=== PATIENT | male | born 1980 | race Caucasian/White ===

== ENCOUNTER 2016-05-02 08:04 | Observation (INO) | payer BC ==
--- NOTE | 2016-05-02 09:24 | EDPHY ---
General - History Smoking Status: Former smoker Narrative: CHIEF COMPLAINT: numbness, tingling HISTORY OF PRESENT ILLNESS: patient returns from [place] on Friday and awoke yesterday morning with numbness from the nipple line down. Says that he had numbness and tingling all the way down to his toes. Symptoms were present throughout the day yesterday without change. No weakness. No back pain, fever , chills. No cough or signs of illness. Said he woke this morning at 5:00 a.m. with symptoms now involving the distal forearms and inside of both hands. No involvement of the backs of the hands of the palms of the hands. Still has no weakness of any kind. He has no incontinence. He has no difficulty urinating. He has no difficulty ambulating. No recent trauma. No use of IV drugs. No other associated complaints or modifying factors. REVIEW OF SYSTEMS: Ten systems reviewed and are negative unless otherwise noted in the HPI PERTINENT MEDICAL HISTORY: None EXAMINATION General Appearance: Alert, no distress Head: normocephalic, atraumatic Eyes: Pupils equal and round, no conjunctival pallor or injection ENT, Mouth: Mucous membranes moist. Uvula midline. No erythema or edema. Neck: Normal inspection, supple, non-tender . No meningismus. Painless range of motion all planes. Respiratory: Lungs are clear to auscultation . No wheezing, rhonchi or crackles. Cardiovascular: Regular rate and rhythm . No murmur. Pulses intact distally. Gastrointestinal: Abdomen is soft and nontender Back: non-tender, no bony abnormalities Neurological: A&Ox4 . Cranial nerves 2-12 grossly intact. Strength is 5/5 in all 4 limbs. No pronator drift. Normal finger to nose. Normal heel-montanez. No dysmetria noted. Sensation is apparently intact in all limbs with symmetry. Normal hot coal discerned. Normal proprioception. Skin: Warm and dry, no rash Extremities: Nontender, no pedal edema Psychiatric: Mood and affect normal DIFFERENTIAL DIAGNOSES: Including but not limited to Anesthesia, paresthesia, electrolyte disturbance, Guillain-Stowell, CMV, epidural abscess, spinal cord mass, cauda equina MDM: 9:25 a.m. reports of paresthesia anesthesia. The initial report was from the T4 dermatome and down circumferentially and bilaterally. He also noted this morning spread to the medial aspects of both hands. No involvement of the dorsum of the hands or arms. No involvement of the volar aspect. Neuro exam is normal by my interpretation. He says that he feels pressure in the legs and does not feel normal to him during my palpation. He has got 2 point sensation, normal proprioception, normal hot and sensation. No trauma. No fever. No back pain. No midline tenderness to palpation. Vital signs are within normal limits. Routine laboratory studies have been ordered to verify electrolyte status. I will consult Neurology for further help with the case. 9:44 a.m. I have discussed the case with Dr. Gaines, neurologist. Given the history and examination findings I discussed with him he recommends that we obtain MRI of both the cervical and thoracic spines both with and without contrast. He suggests the possibility of transverse myelitis among others. He says that he will come see the patient after the MRIs. 12:50 p.m. I have re-evaluated the patient several times. Most recently just now his return from MRI. He has no new complaints. Laboratory studies are within normal limits. His vital signs remained stable. He remains neuro intact. Page Dr. Gaines for him to personally review the MRI. No interpretation from the radiologist at this time. 1:20 p.m. notified by radiologist Dr. Pope of MRI results. He notes multifocal areas of edema and demyelination of the cervical and thoracic spinal cord. There are likely medulla masses. Also notes a large disc herniation at T7-T8 it is affecting the spinal cord. I will contact Dr. Gaines and Neurosurgery. 1:30 p.m. I discussed the case with Dr. Harkins with Neurosurgery for the T7-T8 herniation. He will provide consultation. I discussed the case with the hospitalist, and he will be admitted to Dr. Delmy Snow for an inpatient care. I discussed the case with Dr. Gaines. he recommends 1 g of Solu-Medrol IV , and he will provide consultation. He says he will obtain MRI of the brain later tonight or 1st thing in the morning and he will obtain the lumbar puncture studies. I discussed this with the patient he is agreeable to admission for further workup and care. He has been admitted in stable condition. SUPERVISION: Patient was evaluated in conjunction with the supervising physician. Please see their note for details. Dr. Adames (Jin Escalante) The patient was evaluated and managed by the physician's preschool assistant teacher. My cosignature indicates that I reviewed the chart and I agree with the findings and plan of care as documented. I am the secondary supervising physician. ( Corrine Adames) - Objective Vital Signs: Initial Vital Signs Temperature (C) 36.9 C 05/02/16 08:07 Heart Rate 103 H 05/02/16 08:07 Respiratory Rate 16 05/02/16 08:07 Blood Pressure 147/98 H 05/02/16 08:07 O2 Sat (%) 95 05/02/16 08:07 O2 Delivery Mode Room Air Allergies/Adverse Reactions: No Known Allergies Allergy (Unverified 05/02/16 08:11) Home Medications: Medication Instructions Recorded NK [No Known Home Meds] 05/02/16 Laboratory Results: Laboratory Results 05/02/16 08:30 05/02/16 08:30 05/02/16 05/02/16 08:30 08:30 WBC 5.36 10^3/uL 10^3/uL (3.80-9.50) RBC 5.05 10^6/uL 10^6/uL (4.40-6.38) Hgb 15.7 g/dL g/dL (13.7-17.5) Hct 44.8 % % (40.0-51.0) MCV 88.7 fL fL (81.5-99.8) MCH 31.1 pg pg (27.9-34.1) MCHC 35.0 g/dL g/dL (32.4-36.7) RDW 12.2 % % (11.5-15.2) Plt Count 232 10^3/uL 10^3/uL (150-400) MPV 10.5 fL fL (8.7-11.7) Neut % (Auto) 55.3 % % (39.3-74.2) Lymph % (Auto) 34.0 % % (15.0-45.0) [place] % (Auto) 8.8 % % (4.5-13.0) Eos % (Auto) 0.9 % % (0.6-7.6) Baso % (Auto) 0.6 % % (0.3-1.7) Nucleat RBC Rel Count 0.0 % % (0.0-0.2) Absolute Neuts (auto) 2.97 10^3/uL 10^3/uL (1.70-6.50) Absolute Lymphs (auto) 1.82 10^3/uL 10^3/uL (1.00-3.00) Absolute Monos (auto) 0.47 10^3/uL 10^3/uL (0.30-0.80) Absolute Eos (auto) 0.05 10^3/uL 10^3/uL (0.03-0.40) Absolute Basos (auto) 0.03 10^3/uL 10^3/uL (0.02-0.10) Absolute Nucleated RBC 0.00 10^3/uL 10^3/uL (0-0.01) Immature Gran % 0.4 % % (0.0-1.1) Immature Gran # 0.02 10^3/uL 10^3/uL (0.00-0.10) Sodium 139 mEq/L mEq/L (134-144) Potassium 4.3 mEq/L mEq/L (3.5-5.2) Chloride 108 mEq/L mEq/L (97-110) Carbon Dioxide 23 mEq/l mEq/l (22-31) Anion Gap 8 mEq/L mEq/L (8-16) BUN 14 mg/dL mg/dL (7-23) Creatinine 1.0 mg/dL mg/dL (0.7-1.3) Estimated GFR > 60 Glucose 96 mg/dL mg/dL (70-100) Calcium 9.5 mg/dL mg/dL (8.5-10.4) Phosphorus 2.6 mg/dL mg/dL (2.5-4.5) Magnesium 2.2 mg/dL mg/dL (1.6-2.3) Total Bilirubin 1.4 mg/dL mg/dL (0.1-1.4) Conjugated Bilirubin 0.4 mg/dL mg/dL (0.0-0.5) Unconjugated Bilirubin 1.0 mg/dL mg/dL (0.0-1.1) AST 44 IU/L IU/L (17-59) ALT 62 IU/L IU/L (21-72) Alkaline Phosphatase 63 IU/L IU/L (38-126) CK-MB (CK-2) Fraction 0.31 ng/mL ng/mL (0-3.19) Total Protein 7.6 g/dL g/dL (6.3-8.2) Albumin 4.7 g/dL g/dL (3.5-5.0) Medications Given: Discontinued Medications Methylprednisolone Sodium Succinate 1 gm/ Sodium Chloride 108 mls @ 108 mls/hr IV EDNOW ONE Stop: 05/02/16 14:30 Last Admin: 05/02/16 14:23 Dose: 108 mls Departure - Departure Disposition: [facility] Inpatient Acute Clinical Impression: Paresthesia, 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
[2016-05-02 09:29] LABS: % IMMATURE GRANULYOCYTES 0.4 % (0.0-1.1); ABSOLUTE IMMATURE GRANULOCYTES 0.02 10^3/uL (0.00-0.10); ADD DIFF? NO; ADD MORPH? NO; ADD SCAN? NO; ATYPICAL LYMPHOCYTE FLAG 30 (0-99); FRAGMENT RBC FLAG 0 (0-99); HEMATOCRIT 44.8 % (40.0-51.0); HEMOGLOBIN 15.7 g/dL (13.7-17.5); LEFT SHIFT FLG 0 (0-99); LIPEMIA HEMOLYSIS FLAG 90 (0-99); MEAN CELL HEMOGLOBIN 31.1 pg (27.9-34.1); MEAN CELL VOLUME 88.7 fL (81.5-99.8); MEAN PLATELET VOLUME 10.5 fL (8.7-11.7); PLATELET CLUMPS FLAG 0 (0-99); PLATELET COUNT 232 10^3/uL (150-400); RED BLOOD CELL COUNT 5.05 10^6/uL (4.40-6.38); RED CELL DISTRIBUTION WIDTH 12.2 % (11.5-15.2)
[2016-05-02 09:36] LABS: ALANINE AMINOTRANSFERASE 62 IU/L (21-72); ALBUMIN 4.7 g/dL (3.5-5.0); ALKALINE PHOSPHATASE 63 IU/L (38-126); ANION GAP 8 mEq/L (8-16); ASPARTATE AMINOTRANSFERASE 44 IU/L (17-59); BILIRUBIN,TOTAL 1.4 mg/dL (0.1-1.4); BILIRUBIN-CONJUGATED 0.4 mg/dL (0.0-0.5); CALCIUM 9.5 mg/dL (8.5-10.4); CARBON DIOXIDE 23 mEq/l (22-31); CHLORIDE 108 mEq/L (97-110); GLOMERULAR FILTRATION RATE > 60; GLUCOSE 96 mg/dL (70-100); MAGNESIUM 2.2 mg/dL (1.6-2.3); POTASSIUM 4.3 mEq/L (3.5-5.2); SODIUM 139 mEq/L (134-144); TOTAL PROTEIN 7.6 g/dL (6.3-8.2)
[2016-05-02 09:52] LABS: CREATINE KINASE-MB FRACTION 0.31 ng/mL (0-3.19)
[2016-05-02] MEDS ORDERED: GADOBUTROL 10 ML VIAL IVP ONE (10:56)
[2016-05-02] MEDS ORDERED: methylPREDNISolone SOD SUCC 1 GM in NS 100 ML IV ONE (13:31)
[2016-05-02] MEDS ORDERED: ONDANSETRON DISINTEGRATING 4 MG TAB PO PRN (15:04)
[2016-05-02] MEDS ORDERED: ONDANSETRON 4 MG/2 ML VIAL IVP PRN (15:04)
[2016-05-02] MEDS ORDERED: ACETAMINOPHEN 325 MG TAB PO PRN (15:04)
[2016-05-02 15:37] LABS: HEMATOCRIT 43.9 % (40.0-51.0)
[2016-05-02 15:45] LABS: C-REACTIVE PROTEIN 5.3 mg/L (<10.0)
--- NOTE | 2016-05-02 17:24 | GHP ---
[f rep st] HISTORY AND PHYSICAL DATE OF ADMISSION: 05/02/2016 CHIEF COMPLAINT: Numbness, tingling. HISTORY OF PRESENT ILLNESS: The patient is a 36-year-old male with no past medical history, presenting with numbness from the level of his chest to his legs. He just returned from a trip to [place] on Friday, and was in a normal state of health until yesterday when he developed numbness from the nipple line down to his feet. He felt a sensation like he described as when your legs fall asleep. He thought he slept wrong, and went to bed as usual. He awoke today, and symptoms persist and now involve the distal forearms and inside of both his hands. He denied any weakness. No bowel or bladder incontinence. No headache or vision changes. He denies any recent trauma. He states that he was rough- housing and playing in the pool and ocean in [facility], but does not recall feeling any back pain. He was in [place] for 6 days in January. REVIEW OF SYSTEMS: I completed a 10-point review of systems. Negative, except as noted in HPI. PAST MEDICAL HISTORY: None. PAST SURGICAL HISTORY: None. ALLERGIES: No known drug allergies. MEDICATIONS: None. FAMILY HISTORY: Paternal grandmother with cancer. Hypertension in the family. SOCIAL HISTORY: Lives in [place]. Works in IT. Smokes nicotine vaporized, occasional marijuana. Drinks alcohol regularly. PHYSICAL EXAMINATION: VITAL SIGNS: Temperature 36.7, blood pressure 148/97, heart rate 80s to 100s. Respirations 16, 95% on room air. GENERAL: The patient is sitting up in bed, in no acute distress. Mildly anxious. HEENT: PERRLA. EOMI. Oropharynx clear. No lesions or ulcerations. CV: Regular rate and rhythm. No murmurs, gallops, or rubs. LUNGS: Clear to auscultation bilaterally. ABDOMEN: Soft, nontender, nondistended. Positive bowel sounds. : Espinoza, no suprapubic tenderness. MUSCULOSKELETAL: 5/5 upper and lower strength. NEURO: 2 through 12 intact. Normal proprioception, +2 symmetric reflexes at the biceps, brachioradialis, patellar, and ankle. Normal sensation to touch. No pronator drift. SKIN: Sunburned. Skin peeling on right foot. PSYCH: Alert and oriented x3. LABS: WBC 5.3, hemoglobin 15, hematocrit 44, platelets 232. Sodium 139, potassium 4.3, chloride 108, carbon dioxide 23, BUN 14, creatinine 1, glucose 93 , phosphorus 2.6, magnesium 2.2. LFTs within normal. TSH 3.5. Vitamin B12 pending. IESHA pending. HIV and RPR pending. IMAGING: Thoracic spine MRI. The thoracic cord has scattered areas of intrinsic isovolumic T2 hyperintensity dominant in the lower thoracic cord at the level of T12-L1. Disk disease associated with cord compression T7-T8 greater than T5-T6. Cervical spine MRI: Focal abnormal dorsal areas of T2 weighted hyperintensity in the cervical cord, certain lesions behind C3 and C7, and equivocal lesions on the left side of the medulla at levels dorsal C2, right C4, left lateral C5, and upper T1, lateral lower T1, and left lateral T2. ASSESSMENT AND PLAN: 1. Paresthesias at the level of the nipple line down. Concern for demyelinating process such as multiple sclerosis, transverse myelitis. Dr. Harkins with neurosurgery has evaluated patient. Jin Escalante PA-C, in the emergency room, spoke with Dr. Gaines with Neurology. Plan for brain MRI either tonight or tomorrow, following with a lumbar puncture. He was treated with 1 g Solu-Medrol in the emergency room. I will continue this daily. Initial lab evaluation will include TSH, ESR, CRP, HIV, RPR. Appreciate additional recommendations from Neurology. 2. Diet: Regular. 3. Deep vein thrombosis prophylaxis: Ambulatory. DISPOSITION: The patient warrants observation admission given acute paresthesia , warranting further evaluation by Neurology, and lumbar puncture. /[id number]/MODL MTDD
[2016-05-02 23:56] VITALS: RESP 16; O2SAT 95
[2016-05-03 07:51] VITALS: BP 142/95; PULSE 100; TEMP 98.3
[2016-05-03] MEDS ORDERED: methylPREDNISolone SOD SUCC 1 GM in D5W 100 ML IV SCH (09:00)
[2016-05-03] MEDS ORDERED: GADOBUTROL 10 ML VIAL IVP ONE (09:03)
--- NOTE | 2016-05-03 11:13 | GCON ---
[f rep st] CONSULTATION NEUROSURGERY CONSULTATION DATE OF CONSULTATION: 05/02/2016 Patient was seen and evaluated in the [facility] Emergency Department at approximately 2:30 p.m. on 05/02/2016. HISTORY OF PRESENT ILLNESS: The patient is a 36-year-old man who has had roughly 1 day of lower ext remity and to some degree upper extremity numbness. He has this numbness on the chest from roughly a T4 sensory level at the nipples, but also has some numbness in the 5th digits of both hands, which would be consistent with around C8. He just returned from a trip to [place] and had this numbness whe n he awoke yesterday. He has not had any weakness or other signs of myelopathy. He has not any pain or difficulty with his walking. He has not had any fevers or chills or any other obvious illness rec ently and denies any viral symptoms. This is the 1st time any kind of episode like this has ever hap pened to him. He denies any bowel or bladder incontinence and does not have any other complaints tod ay. MRI scans of the cervical and thoracic spine were obtained in the emergency department, and alth ough these scans were performed without contrast, he does appear to have several areas of T2 signal within the cervical spine, suggestive of demyelinating lesions. He was also found to have a small di sk bulge at T7-8 in the thoracic spine, eccentric to the left side with a mild effacement of the ant erior portion of the spinal cord but no compression. There is CSF surrounding the cord completely wi th no cord signal change or nerve compression. He specifically denies any sign of radicular symptoms in the thoracic region. REVIEW OF SYSTEMS: A 10-point review of systems is negative other than described in HPI. PAST MEDICAL HISTORY: None. PAST SURGICAL HISTORY: None. ALLERGIES: No known drug allergies. MEDICATIONS: None. SOCIAL HISTORY: The patient denies any alcohol, tobacco or other drug use other than some social dr inking. FAMILY HISTORY: Negative for any spinal problems. PHYSICAL EXAM: VITAL SIGNS: His temperature is 36.9, heart rate is 103, respiratory rate 16, blood pressure is 147/98, sats are 95% on room air. GENERAL: He is awake, alert, and oriented x3. HEENT: P upils are equal, round, and react to light. Extraocular movements are intact. Face is symmetric. Ton jeronimo is midline. Palate is symmetric. He has full 5/5 strength at the deltoids, biceps, triceps, drying tunnel operator and finger extension on both sides. He does have some mild numbness to the small finger on both liana es, consistent with a C8 distribution. He does not have Tinel's at the wrist or elbow. His deep tend on reflexes are normal, and there is no Villareal's. In the lower extremities, he has 5/5 strength in the hip flexion, extension, knee flexion and extension and plantar and dorsiflexion bilaterally. He has decreased light touch and pain sensation over the entire thorax and lower extremities in a nonde rmatomal pattern below roughly T4 level. The reflexes in his lower extremities are normal, and there is no clonus, and the toes are downgoing. IMAGING REVIEW: See HPI. RESULTS REVIEW: The white count is 5.3, hemoglobin is 15.7, hematocrit 44.8, platelet count is 232, 000. Sodium is 139, potassium 4.3, chloride is 108, BUN 14, creatinine 1.0, glucose is 96. ASSESSMENT/PLAN: The patient is a 36-year-old man who was admitted with trunk and lower extremity n umbness with some numbness also extending into the C8 region of the hands. His MRI scan shows what a ppears to be demyelinating lesions in the cervical spine. Incidentally found was also a disk bulge a t T7-8 with some effacement of the ventral cord but no cord compression or signal change and no sign of nerve compression either. In terms of his thoracic disc for which we were consulted, I think is an incidental finding with no obvious symptoms at this time and no need for any further imaging or t reatment. He certainly is not myelopathic and does not have any thoracic radicular symptoms. He is c urrently in the process of being worked up for demyelinating disease such as multiple sclerosis with Neurology, and will have further scans with contrast of the cervical spine and head done tomorrow. I do not think there is any further need for any neurosurgical workup, but feel free to call us with any questions or concerns at any time. Thanks for the kind consultation. /[id number]/MODL
--- NOTE | 2016-05-03 14:41 | PDIAF ---
- Diagnosis Diagnosis: MS Code Status: Full Code - Medication Management Discharge Medications: Medications to Continue on Transfer Acetaminophen [Tylenol 325mg (*)] 650 mg PO Q4HRS PRN #0 tab 05/03/16 [Last Taken Unknown] methylPREDNISolone SOD SUCC [Solu-Medrol 1 gm (*)] 1 gm IV DAILY #0 vial [Last Taken Unknown] Discharge Medications: Refer to the Discharge Home Medication list for PRN reason. PICC Care - Routine: N/A - Orders Services needed: Home Care, Registered Nurse Home Care Face to Face: I certify that this patient was under my care and that I had the required [id number] encounter meeting the encounter requirements on the discharge day. My findings support the fact that the patient is homebound as defined in CMS Chapter 7 Medicare Benefits Manual 30.1.1, The condition of the patient is such that there exists a normal inability to leave home and consequently, leaving home would require a considerable and taxing effort. Diet Recommendation: no restrictions on diet - Follow Up Care Current Providers and Referrals: NONE *PRIMARY CARE P,. [Primary Care Provider] - As per Instructions Alirio Gaines MD [Medical Doctor] - As per Instructions
--- NOTE | 2016-05-03 15:29 | GDS ---
[f rep st] DISCHARGE SUMMARY DISCHARGE DIAGNOSIS: Demyelinating process. CONSULTATIONS: 1. Neurosurgery. 2. Neurology. STUDIES AND PROCEDURES DONE: 1. Thoracic spine MRI. 2. Cervical spine MRI. 3. MRI of the brain. PHYSICAL EXAM: GENERAL: The patient is alert. VITAL SIGNS: Afebrile at 36.8, pulse is 100 respir atory rate 16, blood pressure is 142/95. He is saturating 95% on room air. I have seen and evaluat ed the patient on the day of discharge. HOSPITAL COURSE: The patient is a 36-year-old male with no past medical history who presented to [facility] emergency room with complaints of numbness and tingling. He did receive a consultation from Neuro surgery as well as Neurology during this hospitalization. RADIOLOGICAL STUDIES: Include MRI of the brain, cervical spine, thoracic spine. His studies repres ent demyelinating process indicative of new diagnosis of MS. The patient has been treated with IV s teroid during this hospitalization and thorough evaluation has been performed. It is recommended [facility] he follow up in the outpatient setting with MS specialists with further treatment options to be e valuated. During the patient's hospitalization, incidental disk herniation at the level of T7-8 was identified. Neurosurgery felt that this was not initiating his symptoms at the time of this hospit al course. It is recommended that he continue conservative treatment with outpatient followup as wa rranted. Pending studies include IESHA screen as well as 10 mL IgG the laboratory evaluations have be en within normal limits during this hospital course. I have reviewed the patient's disposition and plan of discharge with Dr. Gaines of Neurology. He is in agreement with this plan. DISCHARGE MEDICATIONS: I have not added any other medications other than the Solu-Medrol 1 g IV to be administered on 05/04/2016 via home care. Reviewed this plan with the mental health case manager as well as [facility] patient I spent greater than 35 minutes in the care, coordination, and management of this patient' s disposition. /[id number]/MODL
--- NOTE | 2016-05-03 16:24 | GCON ---
[f rep st] CONSULTATION NEUROLOGY CONSULTATION DATE OF CONSULTATION: 05/03/2016 REFERRING PHYSICIAN: Dr. Aragon REPORT TITLE: BILLING INFORMATION: 75 minutes total floor time today; over 50% in counseling with the patient and his girlfriend and coordination of care with case management and Hospital Medicine. CHIEF COMPLAINT: Numbness. HISTORY OF PRESENT ILLNESS: The patient is a very pleasant 36-year-old gentleman from [place] who moved to [place] 1 year ago. He works in IT. He has no personal or family history of neurologic disease. No autoimmune history in the family. He has had no previous episodes of neurologic illness outside of 1 year ago. He began noticing full-body electrical sensations with flexion of the neck forward (Lhermitte's sign). Outside of this, no other episodes of neurologic events, including no previous episodes of optic neuritis. He has no history of Lyme disease or other neuro infectious disease. No history of neuro toxins or excessive stimulant use. He has used cocaine occasionally in the past but not abused in any significant fashion stimulants. No huffing history of inhaled substances. The patient and his girlfriend were in [place] and returned on Friday, and he went to bed that evening, sleeping on the sofa in an upright curved fashion and woke up that morning, Friday early, and noticed that he was numb from the nipples down. The numbness was circumferential, encompassing his entire body from the nipples to his feet in a -type fashion without tingling. There was no weakness associated with it at all. No incontinence. It did not go away and persisted throughout the day. He did develop later in the day some very faint numbness in his pinkies (digit 5) bilaterally. He walked and did his work as normal, but it was present the next morning so he came to our emergency department. He had an MRI of his cervical and thoracic spine which showed multiple areas of previous demyelination without enhancement. He also had a disk protrusion at T7 and T8 and T5-T6 without any cord edema or cord compression. Dr. Harkins from Neurosurgery kindly evaluated the patient because of this disk bulge and agrees that this is an incidental finding with some effacement of the ventral cord but no cord compression or signal change from the disk itself. We performed an MRI brain with and without contrast this morning which shows a few white matter lesions that were nonenhancing and also suspicious for demyelinating plaques, especially in the left temporal occipital region. He received 1 g of IV Solu-Medrol yesterday and today with improvement of his numbness now. The numbness has resolved in his lower extremities and has resolved to above his knees bilaterally. REVIEW OF SYSTEMS: A 10-point review of systems was done and only pertinent to HPI. PAST MEDICAL HISTORY: None. HOME MEDICATIONS: None. ALLERGIES: None. SOCIAL HISTORY: Works in IT. He occasionally drinks alcohol and smokes cannabis once every couple weeks. FAMILY HISTORY: Negative for autoimmune or neurologic disease. No one has MS. PHYSICAL EXAM: VITAL SIGNS: Blood pressure 125/80, temperature 36.6, heart rate 82, respirations 16. GENERAL: In no acute distress. NEUROLOGIC: Higher mental function: Awake, alert, oriented, lucid, no aphasia. Cranial nerve: Normal 2 through 7, 11, 12, no ALICIA, no APD. Motor: Normal strength, tone and deep tendon reflexes throughout. Toes are silent bilaterally. Sensory: The patient has a sensory level at the level of T4, extending downward with the resolution of light touch, numbness above his knees bilaterally. He has normal sensation below his knees to his feet. Coordination is normal in his limbs. Gait is normal straight away into toe walking and heel to toe. TESTS: Please see the imaging reports of his MRI, cervical, thoracic and brain MRI. IMPRESSION/PLAN: 1. Demyelinating disease, NOS Overall, the patient likely has relapsing / remitting multiple sclerosis. He developed Lhermitte sign 1 year ago which likely is a manifestation of one of his cervical lesions. It is interesting, he has little to no history of MS attacks in the past compared to the burden of plaque seen on his imaging. Even with this symptomatology there are no enhancing lesions. I wonder if the position he slept in on the sofa caused a dynamic compression of his disk prolapse onto an old plaque in his thoracic cord, causing some symptoms from the T8 region. I speculate this because he did develop later in the day some very faint numbness in his pinkies (digit 5) bilaterally. In any case, we will complete 3 days of IV Solu-Medrol. The patient requests to discharge home today , this is reasonable, we will arrange for his 3rd dose to be given tomorrow as an outpatient with home health. We have ordered NMO antibodies. These are pending. I discussed with the patient options at length for further evaluation. He would like to follow up with the [facility]. He will have his lumbar puncture through their Center as they may request further testing. He will gather all his reports and imaging on CD here prior to his consultation with [facility]. He can have the [facility] request his NMO antibodies or call our office for those records. He will call my office if he has any further questions or concerns prior to their consult. No further recommendations now. He will discharge later today and have his outpatient steroid dose-3 tomorrow as outlined above. Thank you for this consultation. /[id number]/MODL MTDD
[2016-05-06 11:43] LABS: ANTINUCLEAR ANTIBODIES SCREEN 0.32 UNITS (<1.00)
== END 2016-05-03 16:37 | disposition home or self-care (01) ==
LOC: INTOOBSV 13:45 → F3N 16:36
PROVIDERS: ADMIT Internal Medicine; ATTEND Internal Medicine
DX: G37.9 Demyelinating disease of central nervous system, unspecified (principal); M51.24 Other intervertebral disc displacement, thoracic region; Z87.891 Personal history of nicotine dependence
CPT/HCPCS: 70553; 72156; 72157; 96365; 99285; G0378; 82607-90; A9585; J2930